=== PATIENT | male | born 1940 | race Caucasian/White ===

== ENCOUNTER 2024-06-29 10:07 | Observation (INO) ==
--- NOTE | 2024-06-07 09:29 | Anesthesiology Consultation ---
Date of Service June 07, 2024 Assessment & Plan (1) Encounter for pre-operative examination: Chart Review Chart Review: Acceptable Risk for Surgery (pending 06/12/24 device clinic records (if available)) and Patient NOT seen in Pre Admission Testing - Awaiting [place] [facility] visit 06/12/24 (if available) - otherwise will be acceptable risk for surgery -Infectious Disease screening: Per PAT nursing assessment on 06/06/24. No known infectious disease contacts in past 10 days or current infectious disease symptoms. No recent travel outside the country. Last seen by EP 05/31/23= Pacemaker. Tachy-nicolle syndrome. SVT. Normal function dual-chamber permanent pacemaker. Brief episodes of nonsustained VT. SVT: No recent episodes. Possibly related to more regular atrial rhythm with pacing. On low-dose metoprolol. Bradycardia: Eliminated with implantation of his pacemaker. Nonsustained VT: 6 brief episodes on device interrogation lasting only a few seconds. Asymptomatic. Continue beta dania. History Surgery Operation Date: 06/15/24 10:35 Proposed Procedures p TURP (Transurethral Resection Prostate) - Tera Peterson DO Height/Weight Height: 5 ft 9 in Weight: 82.554 kg Allergies Allergy/AdvReac Type Severity Reaction Status Date / Time No Known Allergies Allergy Verified 03/02/24 09:25 Medications Home Medications Medication Instructions Recorded Confirmed Last Taken aspirin 81 mg tablet,delayed 81 mg PO QPM 05/08/19 06/06/24 05/31/23 20:00 release (Adult Low Dose Aspirin) methylcellulose (laxative) 1 dose PO QPM 09/29/22 06/06/24 05/31/23 20:00 [Citrucel] esomeprazole magnesium 20 mg 20 mg PO Q OTHER DAY #45 tabs 02/09/24 06/06/24 Unknown tablet,delayed release simvastatin 20 mg tablet 20 mg PO QPM #90 tabs 02/09/24 06/06/24 Unknown finasteride 5 mg tablet 5 mg PO DAILY #90 tabs 03/02/24 06/06/24 Unknown metoprolol tartrate 25 mg tablet 25 mg PO BID #180 tabs 03/27/24 06/06/24 Unknown alfuzosin 10 mg tablet,extended 10 mg PO DAILY #30 tabs 05/08/24 06/06/24 Unknown release 24 hr Past Medical History Medical History (Updated 06/07/24 @ 10:12 by Joann Wolf PA-C) AAA (abdominal aortic aneurysm) Per A/P CT 02/24/24= Mild infrarenal abdominal aortic aneurysm, 3 cm. Anxiety Bilateral hearing loss Bladder stones BPH (benign prostatic hyperplasia) Cognitive impairment Mild per records - follows with PCP Coronary artery calcification Last seen by cardio 2021- told to follow up PRN; follows with device clinic for pacemaker checks Dupuytren contracture Dyslipidemia GERD (gastroesophageal reflux disease) Hearing deficit Hiatal hernia HTN (hypertension) Hx of basal cell carcinoma Hx of supraventricular tachycardia On beta dania Pacemaker medtronic -SSS-last checked 3-4 mos ago- (will be checked 06/12/24) w/ Dr Childress Pectus excavatum SOB (shortness of breath) on exertion mostly resolved since pacemaker insertion Tachy-nicolle syndrome s/p pacemaker placement 2021 Past Family History Family History Mother Myocardial infarction, Onset Age: 65 secondary to [place] Father , CABG at 86 Coronary heart disease Other Hypertension No family history of adverse response to anesthesia Past Surgical History Surgical History History of arthroscopy of right knee History of colonoscopy with polypectomy History of detached retina repair left History of esophagogastroduodenoscopy (EGD) History of left cataract extraction History of right inguinal hernia repair History of tooth extraction Hx of hand surgery bilateral hands x3 for dupuytren contracture S/P Mohs surgery for basal cell carcinoma x3 or 4 Social History Smoking Status: Never smoker Do You Dip or Chew Tobacco: No Hx Alcohol Use: No Alcohol type: beer alcohol intake frequency: holidays/special occasions only Hx Substance Use: No substance use type: does not use Testing Laboratory Results 06/02/24= WBC: 6.5 H/H: 14.1/41.4 PLATELETS: 207 SODIUM: 141 POTASSIUM: 4.0 CHLORIDE: 110 CO2: 27.0 BUN: 22.0 CREATININE: 1.10 GLUCOSE: 92 URINE CULTURE: <10,000 CFU/ml Mixed marley (multiple species present) Electrocardiogram Date: 06/02/24 Electronic atrial pacemaker at 83bpm Electronic ventricular pacemaker Chest X-Ray Date: 06/02/24 Findings: + NAD Large hiatal hernia New left sided pacemaker compared to 12/21/21 Stress Test Date: 04/02/22 Type: exercise (ECHO) Resting EF: 50% Resting LV Function: normal Valvular Disease: no significant valvular disease Normal exercise stress ECHO without evidence of inducible ischemia. MPHR 94%. 5.40 METS achieved Poor exercise tolerance and low workload achieved Mild cLVH Other Testing Pacemaker check 04/02/24= Medtronic pacemaker. Mode AAIR <--> DDDR. Battery/lead status 10.5 years. AP: 97.9%. [employer] [place] 55.3%. Atrial Dellroy <1%. 1 ventricular event- EMGs illustrate nsVT, longest available 4 seconds in duration. Normal device function. Nearly 100% atrial pacing with 55% ventricular pacing. No arrhythmias Carotid doppler 04/09/22= <50% stenosis of right and left carotid arteries. Antegrade flow to bilateral vertebral arteries
--- NOTE | 2024-06-29 10:58 | History & Physical Bridge Note ---
Date of Service June 29, 2024 History & Physical Bridge Note I have examined the patient, reviewed the History & Physical and in the interval since the performance of the History & Physical I have noted the following changes of clinical significance: no changes noted
[2024-06-29] MEDS: LR 15ML/HR IV SCH (11:11)
[2024-06-29] MEDS ORDERED: ONDANSETRON INJ 2 MG/ML 2 ML VIAL IV PRN (11:22)
[2024-06-29] MEDS ORDERED: ePHEDrine sulfate 50 MG/ML AMP IV PRN (11:22)
[2024-06-29] MEDS ORDERED: PROMETHAZINE HCL 6.25 MG in SODIUM CHLORIDE 0.9% 50 ML IV PRN (11:22)
[2024-06-29] MEDS ORDERED: fentaNYL citrate PF 100 MCG/2 ML VIAL IV PRN (11:22)
[2024-06-29] MEDS ORDERED: ATROPINE SULFATE 0.1 MG/ML 10ML SYR IV PRN (11:22)
[2024-06-29] MEDS ORDERED: NALOXONE HCL 0.4 MG/1 ML VIAL/CARP IV PRN (11:22)
[2024-06-29] MEDS ORDERED: fentaNYL citrate PF 100 MCG/2 ML VIAL ONE (12:00)
[2024-06-29] MEDS ORDERED: ONDANSETRON INJ 2 MG/ML 2 ML VIAL ONE (12:03)
[2024-06-29] MEDS ORDERED: DEXAMETHASONE SOD INJ 4 MG/ML VIAL ONE ×2 (12:03→13:02)
[2024-06-29] MEDS ORDERED: PROPOFOL IV EMULSION 10 MG/ML 20 ML VIAL IV ONE (12:03)
[2024-06-29] MEDS ORDERED: LIDOCAINE 2% 2 ML VIAL/AMP(20MG/ML) INFIL ONE (12:03)
[2024-06-29] MEDS: ceFAZolin 2000MG 2,000 MG/15 ML SYR IV SCH ×2 (12:08→20:20)
[2024-06-29] MEDS ORDERED: PHENYLEPHRINE 100MCG/ML 5ML SYR ONE (13:04)
--- NOTE | 2024-06-29 13:35 | Operative Report ---
PG Post Operative Report Pre & Post Diagnosis Operation Date: 06/29/24 11:40 Pre-Op Diagnosis: Benign Prostatic Hyperplasia with Urinary Obstruct Post-Op Diagnosis: Benign Prostatic Hyperplasia with Urinary Obstruct I identified the patient and participated in the time-out.: Yes Procedure Operation Date: 06/29/24 11:40 Actual Procedures p Transurethral Resection of Prostate(Not Applicable) - Tera Peterson DO Surgeon Tera Peterson, II, DO Fire Engineer None Estimated Blood Loss 10 Findings Consistent with Post-Op Diagnosis Extensive irregular regrowth of the prostate with severe enlargement and irregular Large Prostate nodules with obstruction. Calcifications along the tissue and bladder neck attached to the portions projecting into the bladder, likely calcified tissue/debris. Specimens Prostate adenoma. Drains 24Fr 3-way Catheter Anesthesia Type General Complications none Disposition Disposition: Recovery Room Indications Patient with obstruction due to prostate enlargement. Risks and benefits discussed at length. Description of Procedure Patient was consented and brought back to the operating room. Patient was placed under anesthesia in the supine position and moved to the dorsal lithotomy position. Patient was prepped and draped in the regular sterile fashion. A time out was completed. A 30degree Cystoscope was placed into the bladder and the entire bladder was examined. Severe amount of enlargement was noted to irregular regrowth with nodular areas significant median and lateral lobe regrowth and areas of calcification attached to the tissue projecting into the bladder. Also areas of calcification and inflammation underside of the large lobes. Irregular channel running through the center portion of the prostate due to the irregularities of regrowth. Severe obstructive issues were noted. Significant diverticulum and trabeculation throughout the bladder and varicosities around the bladder neck. The UO's were identified as well as the bladder neck, trigone, dome, and the other important landmarks. The prostatic urethra and large lobes/adenoma was assessed and the veru and bladder neck identified and area/size was assessed. The resection scope was placed and the fine bipolar loop was selected. Starting at the 5 and 7 o'clock positions, a channel was created from bladder neck to the veru. Resection was then taken along the 1 and 11:00 positions running down towards the channel. The tissue was resected down to capsule fibers. An extreme amount of tissue was found to be projecting into the bladder and this was all resected. The bladder neck was monitored throughout the entire process. The ureters bilaterally were also monitored. Extensive resection was necessary in order to debulk the large regrowth and irregular nodule tissue throughout the prostate. The Specimen was removed and sent for analysis. The resection bed and any b leeding areas were fulgurated/cauterized and the entire area inspected. All bleeding was controlled. The bladder was inspected a final time. The bladder was emptied and irrigated. All specimen and debris was removed. The bladder was inspected a final time. No additional tissue was discovered. No significant calcifications or other irregularities. The calcification seen on cystoscopy were likely due to areas of inflamed possibly calcified tissue along the portions of the prostate projecting into the bladder. No other masses lesions tumors or other areas concern. The scope was removed with the bladder partially full. A catheter was placed and balloon elevated. This was easily irrigated. The patient was cleaned, aroused from anesthesia, and transferred to the pacu in stable condition having tolerated the procedure well with no complications. I was present and participated in all aspects of the procedure. The patient will be monitored in the PACU until transferred. Plan to observe overnight with catheter remaining in place on CBI. Will likely follow-up in approximately 2 to 3 weeks for catheter removal and pathology review I attest to the content of the Intraoperative Record and any orders documented therein. Any exceptions are noted below.
[2024-06-29] MEDS ORDERED: PHENAZOPYRIDINE HCL 200 MG TAB PO PRN (13:41)
[2024-06-29] MEDS ORDERED: MoRPHine SULFATE 2 MG/ML CARP IV PRN (13:41)
[2024-06-29] MEDS ORDERED: oxyCODONE/ACETAMINOPHEN 5mg/325mg TAB PO PRN (13:41)
[2024-06-29] MEDS ORDERED: oxyBUTYnin chloride 5 MG TAB PO PRN (13:41)
--- NOTE | 2024-06-29 14:21 | Anesthesiology Progress Note ---
Date of Service June 29, 2024 Anesthesia Post Procedure Vital Signs Vital Signs: Temp Pulse Pulse Resp BP Pulse Ox O2 Del Method 06/29/24 14:15 60 17 145/80 H 98 Room Air 06/29/24 14:04 60 15 143/87 H 97 Room Air 06/29/24 13:55 36.3 C L 65 15 133/91 98 Room Air 06/29/24 13:45 60 13 151/85 H 100 Oxymask 06/29/24 13:35 60 18 145/88 H 100 Oxymask 06/29/24 13:25 36 C L 62 13 141/80 H 100 Oxymask 06/29/24 11:00 36.6 C 74 20 162/90 H 100 Room Air O2 Flow Rate 06/29/24 14:15 06/29/24 14:04 06/29/24 13:55 06/29/24 13:45 2 06/29/24 13:35 9 06/29/24 13:25 9 06/29/24 11:00 Transfer of Care Handoff Completed per policy Notes Mental Status: alert / awake / arousable Patient Amnestic to Procedure: Yes Nausea / Vomiting: adequately controlled Pain: adequately controlled Airway Patency, RR, SpO2: stable & adequate BP & HR: stable & adequate Hydration State: stable & adequate Anesthetic Complications: no major complications apparent
[2024-06-29 14:31] LABS: Basophils # (auto) 0.02 K/uL (0.00-0.20); Basophils % (auto) 0.4 %; Eosinophils # (auto) 0.09 K/uL (0.00-0.50); Eosinophils % (auto) 1.7 %; Hematocrit (blood only) 39.2 % (42.0-52.0); Hemoglobin 13.5 g/dl (14.0-18.0); Immature Granulocytes # (auto) 0.02 K/uL (0.01-0.20); Immature Granulocytes % (auto) 0.4 %; Lymphocytes # (auto) 1.14 K/uL (1.20-3.40); Mean Corpuscular Hemoglobin 30.3 pg (25.0-34.0); Mean Corpuscular Hgb Conc 34.4 g/dL (32.0-36.0); Mean Corpuscular Volume 87.9 fL (80.0-100.0); Mean Platelet Volume 9.6 fL (9.4-12.4); Monocytes # (auto) 0.41 K/uL (0.11-0.59); Monocytes % (auto) 7.5 %; Neutrophils # (auto) 3.76 K/uL (1.40-6.50); Platelet Count 188 K/uL (130-400); RDW Coefficient of Variation 12.6 % (11.5-14.5); RDW Standard Deviation 40.3 fL (36.4-46.3); Red Blood Count 4.46 M/uL (4.70-6.10); White Blood Count 5.44 K/ul (4.8-10.8)
[2024-06-29 14:55] LABS: Potassium 4.2 mmol/L (3.5-5.1)
[2024-06-29 14:56] LABS: Albumin Globulin Ratio 1.6 (0.9-2); Albumin Level 3.8 gm/dl (3.4-5.0); BUN Creatinine Ratio 23.3 (10-20); Bilirubin,Total 0.8 mg/dl (0.2-1.0); Calcium 8.5 mg/dl (8.6-10.3); Creatinine Clr Calc Pharmacy 56.1 ml/min; Globulin 2.4 gm/dl (2.5-4.0); Total Protein 6.2 gm/dl (6.0-8.3)
--- NOTE | 2024-06-29 15:20 | Hospitalist Consultation ---
Date of Consultation June 29, 2024 Assessment & Plan (1) BPH w urinary obs/LUTS: S/P Transurethral Resection Prostate with Dr. Peterson 06/29/24 - pain control / dvt proh / post op abx per primary team - pathology pending (2) Sinus bradycardia: hx of tachy-nicolle syndrome and bradycardia - however this has resolved with implantation of pacemaker Follows with cardiology - last seen 06/12/2024 Patient has not been bradycardic on monitor. Telemetry confirms that pacemaker is working. Okay to continue to monitor on tele, but not acute intervention needed for HR in 60s. Okay to continue with metoprolol with current hold parameters. (3) HTN (hypertension): Continue Metoprolol (4) Dyslipidemia: Continue Statin and ASA (5) Anxiety: Continue buspar 7.5mg BID Plan Dispo: medically stable. Thank you for allowing us to participate in the care of this patient, Medicine will sign off. Please reach out with any questions or concerns. Supervising Physician Co-Signing Physician Notes Chart reviewed, case discussed with Terri Ross PA-C and I agree with the assessment and plan as above except as otherwise noted Labs and images reviewed Patient presented and is s/p TURP for BPH with LUTS. Does have history of sinus bradycardia and tachybradycardia syndrome however this was resolved after implantation of a pacemaker. Follows with cardiology and has no recent symptoms. He is seen at the bedside, is concerned about when he could be discharged tomorrow as he is worried about the weather and notes his respiratory for 45 miles away but has no other concerns. Denies chest pain chest pressure shortness of breath. No lightheadedness or dizziness. No syncope or presyncope. Denies fever chills. Reports pacemaker works very well for him and he has had no issues with it since it was placed can continue metoprolol, rate is currently in the 70s and no concern for worsened bradycardia as his rhythm will pace at the 60s. Continue statin and aspirin as noted. Agree with assessment management as above. History of Present Illness Reason for Consultation: CAD, bradycardia Requesting Physician: Dr. Peterson Attending Physician: Tera Peterson, II, DO History of Present Illness Parviz is 83M with a PMH of BPH, HTN, sick sinus syndrome - s/p pacemaker who presented to the hospital for elective prostate surgery with Dr. Peterson. Hospital medicine team has been consulted for bradycardia and CAD. Patient seen post op n room 280-1, states he is trying to rest. Feeling well, denies shortness of breath or chest pain. Reviewed telemetry monitoring has been paced in 60s since put on the monitor. Spoke with RN - no sign out of acute events in PACU. No issues since coming up to the floor. Allergies Allergy/AdvReac Type Severity Reaction Status Date / Time No Known Allergies Allergy Verified 06/29/24 10:50 Home Medications Medication Instructions Recorded Confirmed Type aspirin 81 mg tablet,delayed 81 mg PO QPM 05/08/19 06/29/24 History release (Adult Low Dose Aspirin) methylcellulose (laxative) 1 dose PO QPM 09/29/22 06/29/24 History [Citrucel] esomeprazole magnesium 20 mg 20 mg PO Q OTHER DAY #45 tabs 02/09/24 06/29/24 Rx tablet,delayed release simvastatin 20 mg tablet 20 mg PO QPM #90 tabs 02/09/24 06/29/24 Rx finasteride 5 mg tablet 5 mg PO DAILY #90 tabs 03/02/24 06/29/24 Rx metoprolol tartrate 25 mg tablet 25 mg PO BID #180 tabs 03/27/24 06/29/24 Rx alfuzosin 10 mg tablet,extended 10 mg PO DAILY #30 tabs 05/08/24 06/29/24 Rx release 24 hr buspirone 7.5 mg tablet 7.5 mg PO BID #60 tabs 06/14/24 06/29/24 Rx Patient History Medical History AAA (abdominal aortic aneurysm) Anxiety Bilateral hearing loss Bladder stones BPH (benign prostatic hyperplasia) Cognitive impairment Coronary artery calcification Dupuytren contracture Dyslipidemia GERD (gastroesophageal reflux disease) Hearing deficit Hiatal hernia HTN (hypertension) Hx of basal cell carcinoma Hx of supraventricular tachycardia Pacemaker Pectus excavatum SOB (shortness of breath) on exertion Tachy-nicolle syndrome Surgical History History of arthroscopy of right knee History of colonoscopy with polypectomy History of detached retina repair History of esophagogastroduodenoscopy (EGD) History of left cataract extraction History of right inguinal hernia repair History of tooth extraction Hx of hand surgery S/P Mohs surgery for basal cell carcinoma Family History Mother Myocardial infarction, Onset Age: 65 secondary to [place] Father , CABG at 86 Coronary heart disease Other Hypertension No family history of adverse response to anesthesia Social History Smoking Status: Never smoker Second Hand Exposure: Yes (father smoked); Do You Dip or Chew Tobacco: No; Tobacco Cessation Education Requested by Patient: No Hx Alcohol Use: No Hx Substance Use: No Preferred Language: [place] Communication Ability: Effective Communication Ability Comment: pt CITIZEN [place] [employer] Required: No Beliefs That Will Affect Care: None marital status: Current Living Situation: Spouse current occupational status: retired 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 He reti Other Information That Helps Us Care for You: No Feels Safe at Home: Yes Safety Concerns: Feels Safe At This Time Physical Activity Frequency: Daily Seatbelt Use: always Assistive Devices: None Review of Systems Review of Systems: All systems reviewed & are unremarkable except as noted in Subjective Physical Exam Physical Exam: General: NAD, VS as above Resp: normal respiratory effort, lungs clear to auscultation CV: RRR, no murmur, Abd: normal bowel sounds, non tender, no hepatosplenomegaly Extremities: Moves all extremities, no edema : hui in place, CBI running, straw colored urine Neuro: A&O x3, Skin: intact, no lesions noted Results & Data Results & Data Vital Signs (Past 12 Hours) Vital Signs Temp Pulse Pulse Pulse Resp BP Pulse Ox 06/29/24 15:01 61 06/29/24 14:30 60 15 133/73 98 06/29/24 14:15 60 17 145/80 H 98 06/29/24 14:04 60 15 143/87 H 97 06/29/24 13:55 97.3 F L 65 15 133/91 98 06/29/24 13:45 60 13 151/85 H 100 06/29/24 13:35 60 18 145/88 H 100 06/29/24 13:25 96.8 F L 62 13 141/80 H 100 06/29/24 11:00 97.9 F 74 20 162/90 H 100 O2 Del Method O2 Flow Rate 06/29/24 15:01 06/29/24 14:30 Room Air 06/29/24 14:15 Room Air 06/29/24 14:04 Room Air 06/29/24 13:55 Room Air 06/29/24 13:45 Oxymask 2 06/29/24 13:35 Oxymask 9 06/29/24 13:25 Oxymask 9 06/29/24 11:00 Room Air Laboratory Results cbc and chemistry reviewed PG Care Time/CCT Total # of Minutes Spent Total Time Spent with Patient: Total time spent is greater than 50% in coordination of care (as documented) at patient's floor/unit and/or counseling patient: Coding Level of Care Code 64271 IN/OBS CONSULT LVL 3,45M Diagnoses BPH w urinary obs/LUTS N40.1; N13.8 Sinus bradycardia R00.1 Primary hypertension I10 Hypertension type: primary hypertension Dyslipidemia E78.5 Anxiety F41.9 (3) HTN (hypertension) Hypertension type: primary hypertension Qualified Code(s): I10 - Essential (primary) hypertension
[2024-06-29] MEDS: TAMSULOSIN HCL 0.4 MG CAP PO SCH (16:20)
[2024-06-29] MEDS: METOPROLOL TARTRATE 25 MG TAB PO SCH (20:22)
[2024-06-29] MEDS: DOCUSATE SODIUM 100 MG CAP PO SCH (20:22)
[2024-06-29] MEDS: busPIRone 7.5 MG TAB PO SCH (20:22)
[2024-06-30 07:46] VITALS: RESP 18; TEMP 97.3; O2SAT 97
--- NOTE | 2024-06-30 08:47 | Urology Progress Note ---
Date of Service June 30, 2024 Assessment & Plan (1) BPH w urinary obs/LUTS: Plan: - Pt POD#1 s/p TURP with Dr. Peterson - Doing well, progressing as expected - Afebrile, lab work reviewed - creatinine 1.03, WBC 5.44, Hgb 13.5 - Tolerating PO diet - 3 way Kevin catheter intact, patent and draining clear minimally pink tinged urine with CBI on slow - CBI clamped during exam, nursing aware - will reassess later this AM - Maintain Kevin catheter - Anticipate home with Kevin catheter later today presuming urine appropriate and he continues to progress as expected - Expected clinical course reviewed, all questions answered - Will arrange outpatient follow-up with our service for voiding trial Admission and Anticipated Discharge Date Admission Date: June 29, 2024 Subjective Patient seen and examined at bedside this morning. No acute issues overnight. Denies pain. Kevin draining clear urine with minimal pink tinge with CBI on slow. CBI clamped at bedside. Denies nausea, vomiting, fever or chills. He reports he is ready to go home. Review of Systems Constitutional: as per Subjective / HPI Genitourinary: + as per Subjective / HPI Physical Exam Constitutional: well developed and well nourished; no acute distress Respiratory: normal respiratory effort; no respiratory distress and no labored breathing Gastrointestinal (Abdomen): Inspection/Auscultation: abdomen normal to inspection Musculoskeletal: Head/Neck/Chest: normocephalic Neurologic: moves all extremities and awake Psychiatric: Orientation: alert and oriented x 3 Genitourinary: Kevin patent and draining clear urine with minimal pink tinge with CBI on slow, CBI clamped at bedside, nursing made aware. Results & Data Vital Signs (Past 12 Hours) Vital Signs Temp Pulse Pulse Pulse Resp BP BP 06/30/24 07:46 36.3 C L 61 18 121/69 06/30/24 05:44 69 06/30/24 03:45 36.6 C 76 16 99/54 L 06/29/24 22:07 36.5 C 62 18 102/59 L 06/29/24 21:49 63 Pulse Ox O2 Del Method 06/30/24 07:46 97 Room Air 06/30/24 05:44 06/30/24 03:45 96 Room Air 06/29/24 22:07 96 Room Air 06/29/24 21:49 PG Care Time/CCT Total # of Minutes Spent Total Time Spent with Patient: Total time spent is greater than 50% in coordination of care (as documented) at patient's floor/unit and/or counseling patient: Coding Level of Care Code None Diagnoses BPH w urinary obs/LUTS N40.1; N13.8
[2024-06-30 10:43] VITALS: BP 99/54; PULSE 76
--- NOTE | 2024-07-03 08:08 | Discharge Summary ---
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 Principal Diagnosis BPH with obstruction Discharge Exam Constitutional well developed and well nourished; no acute distress Respiratory normal respiratory effort; no respiratory distress and no labored breathing Gastrointestinal (Abdomen) Inspection/Auscultation: abdomen normal to inspection Musculoskeletal Head/Neck/Chest: normocephalic Neurologic moves all extremities and awake Psychiatric Orientation: alert and oriented x 3 Genitourinary Kevin patent and draining pink to light dominguez Discharge Data Allergies Allergy/AdvReac Type Severity Reaction Status Date / Time No Known Allergies Allergy Verified 06/29/24 10:50 Consultations 06/29/24 13:47 Consult Hospitalist Routine Procedures Performed Operation Date: 06/29/24 11:40 Actual Procedures p Transurethral Resection Prostate(Not Applicable) - Tera Peterson, DO Hospital Course (1) BPH w urinary obs/LUTS: - Pt POD#1 s/p TURP with Dr. Peterson - Doing well, progressing as expected - Afebrile, lab work reviewed - creatinine 1.03, WBC 5.44, Hgb 13.5 - Tolerating PO diet - 3 way Kevin catheter intact, patent and draining clear minimally pink tinged urine with CBI on slow - CBI clamped during exam, nursing aware - will reassess later this AM - Maintain Kevin catheter - Anticipate home with Kevin catheter later today presuming urine appropriate and he continues to progress as expected - Expected clinical course reviewed, all questions answered - Will arrange outpatient follow-up with our service for voiding trial Total Time Total Time Spent Total Time Spent (In Minutes): 29 Discharge Plan Discharge Items Patient Disposition: Home - Self-Care Reason For Visit: Benign Prostatic Hyperplasia with Urinary Obstruct Discharge Diagnosis: Same Activity: Per Instructions section Lifting: No more than 10 pounds Bathing Comment: Okay to shower after discharge, no tub bath or soaking Sexual Activity: Wait until after follow-up appointment Exercise/Sports: Wait until after follow-up appointment Non-emergency contact: Surgeon and Urologist Call non-emergency contact if: your pain is not controlled and your temperature is above 101 Follow-up/Referrals: Jessie Gresham MD [Primary Care Provider] - Diet: Regular Addtl Attending Provider Instructions: Office will call to set up catheter removal and follow-up. Please resume your previous diet, take all medications as prescribed or as needed, and keep all follow-ups as scheduled. Please call our office at [phone] with any questions, concerns or need to reschedule appointments for any reason. We are happy to assist you. Take antibiotic as directed. You may want to take a stool softener (Colace) at home for the first week after surgery. What to expect after your surgery: You may have pelvic pressure or discomfort. May have blood in urine. May have discomfort or pelvic pain. You may experience pain in bladder for the first few days. Take medicine if you feel you need it for burning and irritation. Healing takes about 4-6 weeks. When to call [facility] at [phone] (or report to the ED if it is after hours): Fever of 101F or higher Discharge or debris in bladder or urine. Bleeding that isnt controlled Pending Studies at Discharge: Yes Stand-Alone Forms: My [facility] Medications and DC Order Prescriptions: New cephalexin 500 mg capsule 500 mg PO BID 7 Days Qty: 14 0RF Continued esomeprazole magnesium 20 mg tablet,delayed release (DR/EC) 20 mg PO Q OTHER DAY Qty: 45 3RF simvastatin 20 mg tablet 20 mg PO QPM Qty: 90 3RF metoprolol tartrate 25 mg tablet 25 mg PO BID Qty: 180 3RF methylcellulose (laxative) [Citrucel] 1 dose PO QPM aspirin [Adult Low Dose Aspirin] 81 mg tablet,delayed release (DR/EC) 81 mg PO QPM alfuzosin 10 mg tablet extended release 24 hr 10 mg PO DAILY Qty: 30 2RF Hold Instructions: Hold given worsening orthostasis Rx Instructions: administer after the same meal each day buspirone 7.5 mg tablet 7.5 mg PO BID Qty: 60 0RF finasteride 5 mg tablet 5 mg PO DAILY Qty: 90 3RF Discharge Orders: Discharge Order (Routine); Ordered 06/30/24 Ordered By: Corazon Fontanez/Other Patient Handouts: Cephalexin Oral Capsule, TURP Home Recovery, Urinary Catheter Bag Empty Clean, Indwelling Urinary Catheter Dc, Leg Bag Care Dc, Kevin Catheter Male Ch, Benign Prostatic Hyperplasia Admission Data Admit Date/Time: 12/19/24 13:41 Attending Provider: Tera Peterson Admit Provider: Tera Peterson Primary Care Provider: Jessie Gresham Other Providers: Parag Ayala Other Interventions: Discharge Summary Assessment (RN) Last Done: 06/30/24 10:42 Coding Level of Care Code 79892 IN/OBS DISCH 30 MIN/LESS Diagnoses BPH w urinary obs/LUTS N40.1; N13.8
== END 2024-06-30 11:36 | disposition home or self-care (01) ==
LOC: 2N 10:07 → ASU 10:07